=== PATIENT | female | born 1945 | race Caucasian/White ===

== ENCOUNTER → 2017-03-01 | Day surgery (SDC) | payer MEDICARE, BC ==
[~2017-03-01] VITALS: Ht 165.1 cm; Wt 103.0 kg
[~2017-03-01] MED LIST: ALLERGY10 MG PO; ARTHRITIS PAIN650 MG PO; CALCIUM WITH VIT D PO; CENTRUM SILVER1 EAC1 PO; FISH OIL 1,2001 EAC1 PO; GLUCOSAM-CHOND1 EACH PO; LIPITOR20 M1 PO; PRILOSEC OTC20 MG PO
== END | disposition disaster alternative care site (69) ==
LOC: GPOC 02-24 10:00 → GEND 02-24 10:00
PROC: 0D758ZZ Dilation of Esophagus, Via Natural or Artificial Opening Endoscopic (ICD-10-PCS; principal; 2017-03-01)
PROC: 0DB68ZX Excision of Stomach, Via Natural or Artificial Opening Endoscopic, Diagnostic (ICD-10-PCS; 2017-03-01)
DX: K22.2 Esophageal obstruction (principal); K44.9 Diaphragmatic hernia without obstruction or gangrene; E78.5 Hyperlipidemia, unspecified; Z88.8 Allergy status to other drugs, medicaments and biological substances; Z79.01 Long term (current) use of anticoagulants; Z79.899 Other long term (current) drug therapy; Z98.890 Other specified postprocedural states
CPT/HCPCS: C1726; J2405; J7030

== ENCOUNTER → 2017-03-03 | Outpatient (CLI) | payer MEDICARE, BC | END | disposition disaster alternative care site (69) | LOC: GBCOE 03-01 10:30 → GRAD 03-01 10:30 → GBCOE 14:19 | DX: N63 Unspecified lump in breast (principal); M81.0 Age-related osteoporosis without current pathological fracture; R10.30 Lower abdominal pain, unspecified | CPT/HCPCS: G0204; G0279 ==